=== PATIENT | female | born 1965 | race Caucasian/White ===

== ENCOUNTER 2016-12-03 01:50 | Emergency (ER) | payer OTHER ==
[2016-12-03] MEDS ORDERED: ALPR.5 PO (02:50)
[2016-12-03 02:51] VITALS: BP 163/88; PULSE 82; RESP 16; TEMP 98.7; O2SAT 99
[2016-12-03] MEDS ORDERED: predniSONE 20 MG TAB PO ONE (03:15)
[2016-12-03] MEDS ORDERED: diphenhydrAMINE HCL 50 MG CAP PO ONE (03:15)
[2016-12-03] MEDS ORDERED: FAMOTIDINE 20 MG TAB PO ONE (03:15)
--- NOTE | 2016-12-03 03:22 | PD ---
HPI Chief Complaint: Skin Problem Time Seen by Provider: 03:16 Travel History International Travel<30 days: No Contact w/Intl Traveler<30days: No Traveled to known affect area: No History of Present Illness HPI 51-year-old white female presents to emergency Department with complaints of a pruritic rash on her trunk, and extremities. She states that she has had problems on and off for some time with hives and rashes. She states that this it started off after in the family. She has had stress-induced urticaria. Over last 2 weeks she developed a very pruritic raised papular rash on her trunk, and extremities. She is taken Claritin, Zyrtec, Xanax and a narcotic pain pill and hopes to alleviate the rash and get some sleep. She states that is been getting worse. 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 She denies any new chemical exposures. [facility] Past Medical History Narrative Medical Stress-induced urticaria Tetanus Vaccination: < 5 Years ?: Not Past Surgical History Surgical History: No Previous Surgery Social History Alcohol Use: Yes Tobacco Use: Yes Substance Use: No Allergies-Medications (Allergen,Severity, Reaction): Coded Allergies: No Known Allergies (Unverified , 12/03/16) Reported Meds & Prescriptions Reported Meds & Active Scripts Active Reported Xanax (Alprazolam) 0.5 Mg Tab 0.5 Mg PO HS PRN Review of Systems Except as stated in HPI: all other systems reviewed are Neg Musculoskeletal: No: Myalgias, Pain Skin: Positive Rash, Positive Itching, Positive Dryness, Positive Hives, Positive Lesions Neurologic: No: Weakness, Dizziness Physical Exam Narrative GENERAL: Well-developed, well-nourished in no acute distress. Nontoxic appearing. HEAD: Normocephalic, atraumatic. EYES: Pupils equal round and reactive. Extraocular motions intact. No scleral icterus. No injection or drainage. ENT: TMs clear without erythema. The external auditory canals clear. Nose: clear . Posterior pharynx is pink and moist. No tonsillar edema or exudate. Uvula midline. Airway patent. NECK: Trachea midline.Supple, nontender, moves head freely. No central bony tenderness or spasm. CARDIOVASCULAR: Regular rate and rhythm without murmurs, gallops, or rubs. RESPIRATORY: Clear to auscultation. Breath sounds equal bilaterally. No wheezes , rales, or rhonchi. GASTROINTESTINAL: Abdomen soft, non-tender, nondistended. No hepato-splenomegaly , or palpable masses. No guarding. EXTREMITIES: No clubbing, cyanosis, or edema. No joint tenderness, effusion, or edema noted. BACK: Nontender without deformity or crepitance. No flank tenderness. Skin: Patient has a raised papular, mildly erythematous rash on her trunk, back , thighs and arms. I see no hives in this area on her chest she does have some questionable raised areas consistent with hives. Data Data Last Documented VS Vital Signs Date Time Temp Pulse Resp B/P Pulse Ox O2 Delivery O2 Flow Rate FiO2 12/03/16 02:51 98.7 82 16 163/88 99 Orders Prednisone (Deltasone) (12/03/16 03:15) Diphenhydramine (Benadryl) (12/03/16 03:15) Famotidine (Pepcid) (12/03/16 03:15) MDM Medical Decision Making Medical Screen Exam Complete: Yes Emergency Medical Condition: Yes Medical Record Reviewed: Yes Differential Diagnosis MDM: High Differential diagnoses: Abscess, folliculitis, cellulitis, lymphangitis, abrasion, contact dermatitis, scabies Narrative Course Patient is given Deltasone 40 mg and Benadryl 50 mg by mouth. Pepcid 40 by mouth. Diagnosis Primary Impression: Dermatitis Patient Instructions: General Instructions Additional Instructions: Rest. Keep the area clean and dry. Medications as directed. Take to Zantac 75 twice daily. Return to the ER if any problems Follow-up with your doctor or doctor of your choice within the next 3-5 days. Med/Other Pt SpecificInfo: Prescription(s) given Disposition: 01 DISCHARGE HOME Condition: Stable Ntiin Damico December 03, 2016 03:22
[2016-12-03] MEDS ORDERED: FAMO1TAB73 PO (03:24)
[2016-12-03] MEDS ORDERED: PERM5CRE11 TOPICAL (03:24)
[2016-12-03] MEDS ORDERED: PRED-503 PO (03:24)
[2016-12-03] MEDS ORDERED: HYDR1CAP30 PO (03:27)
== END 2016-12-03 03:50 | disposition home or self-care (01) ==
LOC: NEPD 01:50
DX: L30.9 Dermatitis, unspecified (principal); Z72.0 Tobacco use
CPT/HCPCS: 99283; J7512; Q0163